=== PATIENT | male | born 1940 | race Caucasian/White ===

== ENCOUNTER 2019-01-03 09:35 | Emergency (ER) | payer OTHER ==
[~2019-01-03] VITALS: Ht 182.9 cm; Wt 103.6 kg
[2019-01-03 09:38] VITALS: Ht 182.9 cm; Wt 103.6 kg
[2019-01-03] MEDS ORDERED: ALBUTEROL SULF8.5 GM INH (09:40)
[2019-01-03] MEDS ORDERED: SYMBICORT 16010.2 GM INH (09:41)
[2019-01-03] MEDS ORDERED: ELIQUIS5 MG PO (09:41)
[2019-01-03] MEDS ORDERED: AZELASTINE137 MCG/0. NASAL (09:41)
[2019-01-03] MEDS ORDERED: ASPIRIN81 MG (09:41)
[2019-01-03] MEDS ORDERED: FLUTICASONE PRO16 GM (09:42)
[2019-01-03] MEDS ORDERED: FUROSEMIDE40 MG PO (09:42)
[2019-01-03] MEDS ORDERED: LISINOPRIL5 MG PO (09:42)
[2019-01-03] MEDS ORDERED: MAXIDEX5 ML EACH EYE (09:42)
[2019-01-03] MEDS ORDERED: TOPROL XL100 MG PO (09:43)
[2019-01-03] MEDS ORDERED: OMEPRAZOLE20 M1 PO (09:43)
[2019-01-03] MEDS ORDERED: K-TAB10 MEQ PO (09:43)
[2019-01-03] MEDS ORDERED: CRESTOR40 MG PO (09:44)
[2019-01-03] MEDS ORDERED: DIPHEDRYL25 MG PO (09:45)
[2019-01-03] MEDS ORDERED: MULTI-DAY VITAM1 TAB PO (09:45)
[2019-01-03] MEDS ORDERED: AYR SALINE50 ML NS (09:45)
[2019-01-03 10:17] LABS: BASOPHILS 0.1 % (0-2); EOSINOPHILS 1.5 % (0-7); HEMATOCRIT 46.4 % (42.0-54.0); HEMOGLOBIN 15.1 g/dL (13.5-17.5); IMMATURE GRANULOCYTES 0.4 % (0-5); LYMPHOCYTES 9.4 % (15-50); MCH 31.4 pg (26.0-34.0); MCHC 32.5 g/dL (31.0-37.0); MCV 96.5 fL (80.0-100.0); MEAN PLATELET VOLUME 12.3 fL (7.4-10.4); MONOCYTES 6.6 % (2-11); PLATELET COUNT 119 10x3/uL (130-400); RBC 4.81 10x6/uL (4.20-6.10); RDW 14.2 % (11.5-14.5); WBC 9.1 10x3/uL (4.8-10.8)
[2019-01-03 10:28] LABS: CALC OSMOLALITY 282 mosm/kg (275-300); CALCIUM 9.4 mg/dL (8.5-10.1); CARBON DIOXIDE 27.5 mmol/L (21.0-32.0); CHLORIDE - SERUM 101 mmol/L (98-107); CREATININE - SERUM 1.3 mg/dL (0.6-1.3); GLUCOSE 93 mg/dL (74-106); POTASSIUM - SERUM 4.9 mmol/L (3.5-5.1); SODIUM 139 mmol/L (136-145); UREA NITROGEN 26 mg/dL (7-18); eGFR NON AFRICAN AMERICAN 57 mL/min (90-120)
[2019-01-03 10:30] LABS: INR 1.25 (0.85-1.17); PROTIME 15.2 SECONDS (11.6-15.0)
[2019-01-03 10:31] LABS: APTT 47.7 SECONDS (22.8-39.4)
[2019-01-03 10:44] LABS: ALBUMIN 3.9 g/dL (3.4-5.0); ALKALINE PHOSPHATASE 74 U/L (46-116); ALT (SGPT) 40 U/L (10-68); BILIRUBIN - TOTAL 0.63 mg/dL (0.2-1.3); CKMB 2.9 U/L (0.0-3.6); CREATINE KINASE 240 UL (21-232); PRO BNP 2181 pg/mL (0-450); PROTEIN - SERUM 7.8 g/dL (6.4-8.2)
[2019-01-03 10:46] LABS: TROPONIN-I < 0.017 ng/mL (0.000-0.060)
[2019-01-03 14:20] VITALS: BP 130/74
== END 2019-01-03 16:30 | disposition other institution (70) ==
LOC: D.ER 09:35
PROVIDERS: Emergency Medicine
DX: J44.1 Chronic obstructive pulmonary disease with (acute) exacerbation (principal); I50.9 Heart failure, unspecified